=== PATIENT | female | born 1990 | race Caucasian/White ===

== ENCOUNTER 2017-04-10 12:55 | Emergency (ER) | payer BC ==
--- NOTE | 2017-04-10 13:48 | Emergency Department Record ---
History of Present Illness - General Chief complaint: Vomiting Stated complaint: VOMITTING FOR A WEEK(),ABDOMINAL/BACK SHAILESH Time Seen by Provider: 04/10/17 13:36 Source: Patient Mode of Arrival: Ambulatory Limitations: No limitations - History of Present Illness Initial comments: The patient is here due to a 7 day hx of frequent nausea and vomiting. She is about 7-8 weeks by dates and has had a problem with hyperemesis in the past with other pregnancies. She is [id number] and her last menses was about 8 weeks ago. She did see someone at a clinic in [place] today and was told she was about 7 weeks . The patient does report some pelvic cramping which came on after all the vomiting but no vaginal bleeding. MD complaint: Nausea, Vomiting Onset/Timin -: Week(s) Description of Vomiting: Watery, Other Quality: Aching Consistency: Constant Improves with: None Associated Symptoms: Loss of appetite, Nausea/vomiting - Related Data Previous Rx's Medication Instructions Recorded Metoclopramide HCl [Reglan] 10 mg PO TID #20 tablet 04/10/17 Allergies Allergy/AdvReac Type Severity Reaction Status Date / Time Sulfa (Sulfonamide Allergy HIVES Verified 04/10/17 13:23 Antibiotics) Travel Screening - Travel/Exposure Within Last 30 Days Have you traveled within the last 30 days?: No - Travel/Exposure Within Last Year Have you traveled outside the [place] in the last year?: No - Additonal Travel Details Have you been exposed to anyone with a communicable illness?: No Review of Systems Constitutional: Denies: Chills, Fever Eyes: Denies: Eye discharge ENT: Denies: Congestion Respiratory: Denies: Cough, Dyspnea Past Medical History - SOCIAL HISTORY Smoking Status: Never smoker Alcohol Use: Occasional Drug Use: None - RESPIRATORY Hx Respiratory Disorders: Yes Hx Asthma: Yes (as chlild) - CARDIOVASCULAR Hx Cardio Disorders: Yes Hx Chest Pain: Yes (sharp pains in left in past weeks) - NEURO Hx Neuro Disorders: No - GI Hx GI Disorders: Yes Hx Abdominal Pain: Yes Hx Hiatal Hernia: Yes Comment:: diaitisis recti - Hx Genitourinary Disorders: No - ENDOCRINE Hx Endocrine Disorders: No - MUSCULOSKELETAL Hx Musculoskeletal Disorders: No - PSYCH Hx Psych Problems: Yes Hx Anxiety: Yes Hx Depression: Yes - HEMATOLOGY/ONCOLOGY Hx Hematology/Oncology Disorders: Yes Hx Blood Transfusions: Yes Hx Blood Transfusion Reaction: No Family Medical History Any Significant Family History?: No Physical Exam - General General Appearance: Alert, Oriented x3, Cooperative, No acute distress - Head Head exam: Atraumatic, Normocephalic, Normal inspection - Eye Eye exam: Normal appearance, PERRL - ENT Throat exam: Normal inspection. negative: Tonsillar erythema, Tonsillar exudate - Neck Neck exam: Normal inspection, Full ROM. negative: Tenderness - Respiratory Respiratory exam: Normal lung sounds bilaterally. negative: Respiratory distress - Cardiovascular Cardiovascular Exam: Regular rate, Normal rhythm, Normal heart sounds - GI/Abdominal GI/Abdominal exam: Soft, Normal bowel sounds, Tenderness (There is very mild lower abdominal tenderness bilaterally.). negative: Rebound, Rigid - Extremities Extremities exam: Normal inspection, Full ROM, Normal capillary refill. negative: Tenderness - Neurological Neurological exam: Alert, Normal gait. negative: Abnormal gait, Motor sensory deficit Course Vital Signs 04/10/17 13:08 Temperature 98.2 F Pulse Rate 67 Respiratory 18 Rate Blood Pressure 121/68 Pulse Ox 100 - Reevaluation(s) Reevaluation #1: The patient is doing better but still is mildly nauseated. She denies any AP or any vaginal bleeding. 04/10/17 14:55 Reevaluation #2: The patient is doing much better at this time. She is resting comfortably and is much less nauseated. She will try to eat some crackers. 04/10/17 16:27 Reevaluation #3: The patient is doing very well at this time. She is able to eat crackers and juice with no nausea or vomiting. I explained to her that her test results do look good and we will discharge her on Reglan for the nausea. 04/10/17 16:49 Medical Decision Making - Data Complexity MDM Data: Labs Ordered and/or Reviewed, X-Ray Ordered and/or Reviewed - Lab Data Result diagrams: 04/10/17 13:32 04/10/17 13:32 - Radiology Data Radiology results: Report reviewed (US: Single Live IUP 7 weeks.) Disposition Disposition: Discharge Clinical Impression: Hyperemesis gravidarum Disposition: Home, Self-Care Condition: (1) Good Instructions: Acute Nausea and Vomiting (ED) Additional Instructions: Please drink plenty of fluids and eat a very bland diet. Use the Reglan if needed for nausea. Please see your PCP or an OB doctor later this week for recheck. Return to the ER if worse. Prescriptions: Metoclopramide HCl [Reglan] 10 mg PO TID #20 tablet Forms: Patient Portal Access Time of Disposition: 16:51 Quality - Quality Measures Quality Measures: N/A - Blood Pressure Screening Does Patient Have Any of the Following: No Blood Pressure Classification: Normal BP Reading Systolic Measurement: 109 Diastolic Measurement: 67 Screening for High Blood Pressure: < Normal BP, F/U Not Required > [G8783]
[2017-04-10] MEDS: ONDANSETRON HCL IV 4 MG/2 ML VIAL IV ONE (13:50)
[2017-04-10] MEDS: 0.9 % SODIUM CHLORIDE 1,000 ML BAG IV ONE ×2 (13:52→14:53)
[2017-04-10 13:53] LABS: BASO % 0.2 % (0-6); GRAN % 73.4 % (47-80); HEMOGLOBIN 14.6 gm/dl (11.6-16.0); LYMPH % 22.3 % (16-45); MEAN CELL VOLUME 84.2 fl (81-97); MEAN CORPUSCULAR HEMOGLOBIN 30.7 pg (27-33); MEAN CORPUSCULAR HGB CONC 36.5 g/dl (32-36); MEAN PLATELET VOLUME 10.6 fl (7.4-10.4); MONO % 4.1 % (0-9); PLATELET COUNT 211 K/uL (130-400); RED BLOOD COUNT 4.75 M/uL (3.80-5.40); RED CELL DISTRIBUTION WIDTH 11.9 % (11.5-14.5); WHITE BLOOD COUNT W/O DIFF 10.3 K/uL (4.2-12.2)
[2017-04-10 14:40] LABS: TOTAL B-hCG 83452 mIU/mL
[2017-04-10] MEDS: ONDANSETRON HCL IV 4 MG/2 ML VIAL IVP ONE (14:53)
[2017-04-10] MEDS: SUCRALFATE 1 G/10 ML UD PO ONE (14:53)
[2017-04-10 15:28] LABS: ALBUMIN 4.7 g/dL (4.0-5.0); ALKALINE PHOSPHATASE 62 U/L (35-104); ALT/SGPT 21 U/L (<33); AST/SGOT 17 U/L (10.0-35.0); BILIRUBIN,DIRECT 0.2 mg/dL (0-0.3); BLOOD UREA NITROGEN 14 mg/dL (6-20); CREATININE 0.6 mg/dL (0.5-0.9); EST GLOMERULAR FILTRATION RATE > 60 mL/min; GLUCOSE,RANDOM 72 mg/dL (74-109); LIPASE 17 U/L (13-60); TOTAL PROTEIN 7.1 g/dL (6.6-8.7)
[2017-04-10 16:03] LABS: URINE APPEARANCE CLEAR; URINE BILIRUBIN NEGATIVE (NEGATIVE); URINE BLOOD NEGATIVE (NEGATIVE); URINE COLOR YELLOW; URINE GLUCOSE (UA) NEGATIVE (NEGATIVE); URINE LEUKOCYTE ESTERASE NEGATIVE (NEGATIVE); URINE NITRITE NEGATIVE (NEGATIVE); URINE PROTEIN TRACE (NEGATIVE); URINE UROBILINOGEN 0.2 E.U./dL (0.20 - 1.00)
[2017-04-10 16:04] LABS: URINE KETONE 80 mg/dL (NEGATIVE)
[2017-04-10] MEDS ORDERED: PROMETHAZINE HCL 12.5 MG in 0.9 % SODIUM CHLORIDE 100ML 100 ML IVPB ONE (16:05)
[2017-04-10] MEDS: DIPHENHYDRAMINE HCL IV 50 MG/ML VIAL IVP ONE (16:15)
[2017-04-10] MEDS: METOCLOPRAMIDE HCL 10 MG/2 ML VIAL IVP ONE (16:16)
--- NOTE | 2017-04-12 18:15 | ULTRASOUND REPORT ---
EXAM: ULTRASOUND OB PELV W TV - EARLY (4-13wks) HISTORY: PELVIC PAIN. TECHNIQUE: Transvaginal and transabdominal sonographic evaluation of the pelvis was performed using de la garza scale imaging with the addition of color flow Doppler and spectral analysis. FINDINGS: There is a single live intrauterine with a sonographic age of 6 weeks, 6 days. pole and yolk sac are identified. The placenta is still forming. The amniotic fluid volume appears subjectively normal. The right ovary measures 2.5 x 1.5 x 2.7 cm. The left ovary measures 2.0 x 1.4 x 3.3 cm. There is normal arterial and venous flow to both ovaries. IMPRESSION: SINGLE LIVE INTRAUTERINE WITH SONOGRAPHIC AGE OF 6 WEEKS, 6 DAYS. HEART TONES MEASURE 146 BEATS PER MINUTE. JOB NUMBER: [id number] MTDD
== END 2017-04-10 17:18 | disposition home or self-care (01) ==
LOC: ER 12:55
DX: O21.0 Mild hyperemesis gravidarum (principal); Z3A.01 Less than 8 weeks gestation of pregnancy
CPT/HCPCS: 99284 ×2; 96376; 96374; 96375; 96361; 83690; 85025; 80076; 84702; 80048; 81003; 76817; 76801; J2405; J1200; J2765; J7030